=== PATIENT | female | born 1935 | race Two or more races ===

== ENCOUNTER 2023-06-03 12:59 | Emergency (ER) | payer OTHER ==
[~2023-06-03] VITALS: Ht 152.4 cm; Wt 81.8 kg
[2023-06-03 13:22] VITALS: TEMP 98.8
[2023-06-03 13:58] LABS: APPEARANCE,URINE HAZY (CLEAR); BILIRUBIN,URINE NEGATIVE (NEGATIVE); COLOR,URINE YELLOW (YELLOW); GLUCOSE, URINE (UA) NEGATIVE (NEGATIVE); KETONES,URINE NEGATIVE (NEGATIVE); LEUKOCYTE ESTERASE ,URINE LARGE (NEGATIVE); NITRATE,URINE POSITIVE (NEGATIVE); OCCULT BLOOD,URINE NEGATIVE (NEGATIVE); PH,URINE 6.5 (5.0-8.0); PROTEIN,URINE TRACE mg/dL (NEGATIVE); SPECIFIC GRAVITIY, URINE 1.025 (1.003-1.030); UROBILINOGEN,URINE <=1.0 mg/dL (<=1.0)
[2023-06-03 14:04] LABS: BACTERIA,URINE Many /HPF (None Seen); RBC,URINE 0-2 /HPF (0-2); SQUAMOUS EPITHELIAL CELL,UR Many /LPF (None Seen)
[2023-06-03 15:56] LABS: COVID AG,FIA SOURCE NASAL SWAB
[2023-06-03 15:59] LABS: BASOPHILS % (AUTO) 0.3 % (0.0-2.0); EOSINOPHILS % (AUTO) 2.8 % (1.0-6.0); HEMATOCRIT 42.1 % (36-46); LYMPHOCYTES # (AUTO) 2.9 K/uL (1.0-4.8); LYMPHOCYTES % (AUTO) 38.2 % (22.0-44.0); MEAN CORPUSCULAR HEMOGLOBIN 31.3 pg (26.0-34.0); MEAN CORPUSCULAR HGB CONC 33.2 G/dL (31.0-37.0); MEAN CORPUSCULAR VOLUME 94 fL (80-100); MONOCYTES # (AUTO) 0.6 K/uL (0.1-1.0); MONOCYTES % (AUTO) 7.6 % (2.0-9.0); NEUTROPHILS # (AUTO) 3.9 K/uL (1.8-7.7); NEUTROPHILS % (AUTO) 51.1 % (40.0-70.0); PLATELET COUNT (AUTO) 209 K/uL (150-450); RED BLOOD CELL COUNT(AUTO) 4.47 MIL/uL (4.00-5.20); RED CELL DISTRIBUTION WIDTH 13.7 % (11.5-14.5); WHITE BLOOD COUNT (AUTO) 7.6 K/uL (4.5-11.0)
[2023-06-03 16:03] LABS: ANION GAP 7 mmol/L (8-16); CARBON DIOXIDE 30 mmol/L (22-29); CHLORIDE 101 mmol/L (98-107); CREATININE 0.74 mg/dL (0.60-1.30); GLUCOSE,RANDOM 95 mg/dL (70-110); POTASSIUM 4.3 mmol/L (3.5-5.1); SODIUM SERUM 138 mmol/L (136-145); UREA NITROGEN, BLOOD 17 mg/dL (7-18)
[2023-06-03 16:04] LABS: CALCIUM, TOTAL 9.4 mg/dL (8.8-10.5); GLOMERULAR FILTR. RATE CALC > 60 mL/min (>60)
[2023-06-03 16:07] LABS: B-TYPE NATRIURETIC PEPTIDE 25 pg/mL (0-100)
[2023-06-03 16:10] LABS: ALANINE AMINOTRANSFERASE 16 U/L (12-78); ALBUMIN 3.7 g/dL (3.4-5.0); ALKALINE PHOSPHATASE 80 U/L (46-116); ASPARTATE AMINOTRANSFERASE 19 U/L (15-37); BILIRUBIN,TOTAL 0.4 mg/dL (0.1-1.0); CREATINE KINASE, TOTAL ONLY 34 U/L (26-192)
[2023-06-03 16:11] LABS: TROPONIN I-HIGH SENSITIVITY 6 ng/L (<51)
[2023-06-03 16:26] LABS: SARS-COV2 (COVID) ANTIGEN,FIA Negative (Negative)
[2023-06-03] MEDS ORDERED: IOHEXOL 350 MG/ML 100 ML VIAL ONE (17:33)
[2023-06-03] MEDS ORDERED: SODIUM CHLORIDE 0.9% 100 ML ONE (17:33)
[2023-06-03 18:00] VITALS: BP 139/84; PULSE 75; RESP 18
[2023-06-03] MEDS: CEPHALEXIN MONOHYDRATE 500 MG CAPSULE PO ONE (20:21)
[2023-06-03] MEDS ORDERED: CEPH-558 PO (20:24)
== END 2023-06-03 20:40 | disposition home or self-care (01) ==
LOC: EMS 13:04
DX: R91.8 Other nonspecific abnormal finding of lung field (principal); I10 Essential (primary) hypertension; Z20.822 Contact with and (suspected) exposure to COVID-19
CPT/HCPCS: 99285; 71275; 71045; 87426; 80053; 81001; 82550; 83880; 84484; 85025; 85379; 87040; 36415; 87086; 87186; 93005; Q9967; J7050